=== PATIENT | female | born 1940 | race Caucasian/White ===

== ENCOUNTER → 2020-04-16 | Outpatient (CLI) | payer OTHER ==
[2020-04-16 12:42] LABS: Eosinophils # (auto) 0.3 10 ^3/uL (0-0.8); Eosinophils % (auto) 3.9 % (0.0-7.0); Lymphocytes # (auto) 1.8 10 ^3/uL (0.4-5.4)
[2020-04-16 12:44] LABS: Basophils # (auto) 0.1 10 ^3/uL (0-0.2); Basophils % (auto) 0.9 % (0.0-2.0); Hematocrit 36.2 % (36.0-46.0); Hemoglobin 11.9 g/dL (12.2-16.2); Lymphocytes % (auto) 23.5 % (10.0-50.0); Mean Corpuscular Hemoglobin 24.1 pg (28.0-32.0); Mean Corpuscular Volume 72.9 fL (80.0-100.0); Monocytes # (auto) 0.6 10 ^3/uL (0-1.3); Monocytes % (auto) 7.2 % (0.0-12.0); Neutrophils % (auto) 64.5 % (37.0-80.0); Platelet Count (auto) 298 10^3/uL (140-450); Red Blood Cells 4.96 10^6/uL (4.0-5.20); Red Cell Distribution Width 17.2 % (11.8-14.3); White Blood Cell 7.7 10^3/uL (4.4-10.8)
[2020-04-16 13:07] LABS: Albumin 3.3 g/dL (3.4-5.0); Potassium 3.2 mmol/L (3.5-5.1)
[2020-04-16 13:15] LABS: Urine Bacteria FEW /hpf (None Seen); Urine Blood Negative /uL (Negative); Urine Specific Gravity 1.021 (1.001-1.035); Urine WBC 10 /hpf (0 - 5)
[2020-04-16 13:16] LABS: BUN/Creatinine Ratio 14.3; Bilirubin, Total 0.4 mg/dL (0.2-1.0); Calcium 9.3 mg/dL (8.5-10.1); Total Protein 7.8 g/dL (6.4-8.2)
== END | disposition home or self-care (01) ==
LOC: LAB 12:17
PROVIDERS: ATTEND Student in an Organized Health Care Education/Training Program
DX: I10 Essential (primary) hypertension (principal); E11.9 Type 2 diabetes mellitus without complications
CPT/HCPCS: 36415; 80053; 80061; 81001; 83036; 84443; 85025

== ENCOUNTER → 2020-04-23 | Outpatient (CLI) | payer OTHER ==
[2020-04-23 13:06] LABS: Basophils # (auto) 0.1 10 ^3/uL (0-0.2); Eosinophils # (auto) 0.4 10 ^3/uL (0-0.8); Hematocrit 37.2 % (36.0-46.0); Lymphocytes # (auto) 1.8 10 ^3/uL (0.4-5.4); Monocytes # (auto) 0.4 10 ^3/uL (0-1.3); Red Cell Distribution Width 17.4 % (11.8-14.3); White Blood Cell 7.4 10^3/uL (4.4-10.8)
[2020-04-23 13:07] LABS: Basophils % (auto) 1.2 % (0.0-2.0); Eosinophils % (auto) 5.6 % (0.0-7.0); Hemoglobin 12.1 g/dL (12.2-16.2); Lymphocytes % (auto) 23.8 % (10.0-50.0); Mean Corpuscular Hgb Conc. 32.6 g/dL (32.0-36.0); Mean Corpuscular Volume 73.5 fL (80.0-100.0); Monocytes % (auto) 5.1 % (0.0-12.0); Neutrophils # (auto) 4.8 10 ^3/uL (1.6-8.6); Neutrophils % (auto) 64.3 % (37.0-80.0); Platelet Count (auto) 330 10^3/uL (140-450); Red Blood Cells 5.06 10^6/uL (4.0-5.20)
[2020-04-23 13:40] LABS: Albumin 3.4 g/dL (3.4-5.0); Calcium 10.1 mg/dL (8.5-10.1); Potassium 3.6 mmol/L (3.5-5.1)
[2020-04-23 13:47] LABS: BUN/Creatinine Ratio 11.3; Bilirubin, Total 0.6 mg/dL (0.2-1.0); CRP High Sensitivity 1.25 mg/dL (< 0.3)
== END | disposition home or self-care (01) ==
LOC: LAB 12:38
PROVIDERS: ATTEND Internal Medicine Rheumatology
DX: M05.79 Rheumatoid arthritis with rheumatoid factor of multiple sites without organ or systems involvement (principal); R94.5 Abnormal results of liver function studies; N39.0 Urinary tract infection, site not specified
CPT/HCPCS: 36415; 80053; 85025; 85652; 86141; 86200; 86431; 86705; 87086; 87902

== ENCOUNTER 2020-12-17 16:47 | Emergency (ER) | payer OTHER ==
[~2020-12-17] VITALS: Ht 157.5 cm; Wt 95.3 kg
[2020-12-17 22:04] LABS: White Blood Cell 2.4 10^3/uL (4.4-10.8)
[2020-12-17 22:06] LABS: Hematocrit 27.5 % (36.0-46.0); Mean Corpuscular Hemoglobin 27.5 pg (28.0-32.0); Mean Corpuscular Hgb Conc. 32.8 g/dL (32.0-36.0); Mean Corpuscular Volume 83.9 fL (80.0-100.0); Red Blood Cells 3.28 10^6/uL (4.0-5.20)
[2020-12-17 22:08] LABS: Red Cell Distribution Width 21.5 % (11.8-14.3)
[2020-12-17 22:10] LABS: Band Neutrophils % (manual) 0; Basophils % (manual) 0 (0.0-2.0); Blast Cells 0; Metamyelocytes % 0; Monocytes % (manual) 0 (0-12); Myelocytes % 0; Promyelocytes % 0; Reactive Lymphocytes 0
[2020-12-17 22:23] LABS: Albumin 2.4 g/dL (3.4-5.0); Calcium 9.3 mg/dL (8.5-10.1); Potassium 3.4 mmol/L (3.5-5.1)
[2020-12-17 22:29] LABS: Bilirubin, Total 0.4 mg/dL (0.2-1.0); Total Protein 6.8 g/dL (6.4-8.2)
[2020-12-17 22:45] LABS: Eosinophils % (manual) 2 (0-7); Lymphocytes % (manual) 51 (10.0-50.0)
[2020-12-17] MEDS ORDERED: dilTIAZem 25 MG/5 ML VIAL IV ONE (23:30)
[2020-12-18] MEDS ORDERED: SODIUM CHLORIDE 0.9% 500 ML IV ONE (03:15)
[2020-12-18] MEDS ORDERED: dilTIAZem 25 MG/5 ML VIAL IV ONE (03:15)
[2020-12-18 13:10] VITALS: BP 139/62
== END 2020-12-18 13:29 | disposition short-term general hospital (02) ==
LOC: EDBD 16:47 → ER 16:47
DX: I48.91 Unspecified atrial fibrillation (principal); R42 Dizziness and giddiness; R11.0 Nausea; I10 Essential (primary) hypertension; E11.9 Type 2 diabetes mellitus without complications; Z20.822 Contact with and (suspected) exposure to COVID-19
CPT/HCPCS: 36415; 70450; 71045; 80053; 84484; 85007; 85027; 87426; 93005; 96361; 96374; 96376; 99285; J7040

== ENCOUNTER → 2023-07-04 | Outpatient (CLI) | payer OTHER | END | disposition home or self-care (01) | LOC: XYW 14:19 | PROVIDERS: ATTEND Student in an Organized Health Care Education/Training Program | DX: I51.89 Other ill-defined heart diseases (principal); R07.9 Chest pain, unspecified | CPT/HCPCS: 93306 ==

== ENCOUNTER → 2023-07-07 | Outpatient (CLI) | payer OTHER ==
[~2023-07-07] VITALS: Ht 162.6 cm; Wt 87.1 kg
[2023-07-07] MEDS: ADENOSINE 73 MG in GIVE UN-DILUTED 0 ML IV ONE (11:38)
== END | disposition home or self-care (01) ==
LOC: XYW 09:52
PROVIDERS: ATTEND Student in an Organized Health Care Education/Training Program
DX: R07.9 Chest pain, unspecified (principal); R00.2 Palpitations; I10 Essential (primary) hypertension; R73.03 Prediabetes; M81.0 Age-related osteoporosis without current pathological fracture
CPT/HCPCS: 78452; 93017; A9500; J0153

== ENCOUNTER → 2023-09-05 | Outpatient (CLI) | payer OTHER ==
[2023-09-05 14:47] LABS: Urine Bacteria None Seen /hpf (None Seen)
[2023-09-05 15:07] LABS: Urine Blood Negative /uL (Negative); Urine Clarity Turbid (Clear); Urine Color Yellow (Yellow); Urine Mucus MODERATE (None Seen); Urine Protein, UAD 1+ (Negative); Urine Specific Gravity 1.036 (1.001-1.035); Urine Urobilinogen 2 mg/dL (Negative); Urine WBC 5 /hpf (0 - 5)
[2023-09-05 15:11] LABS: Basophils # (auto) 0.1 10 ^3/uL (0-0.2); Basophils % (auto) 0.7 % (0.0-2.0); Eosinophils # (auto) 0.2 10 ^3/uL (0-0.8); Eosinophils % (auto) 2.9 % (0.0-7.0); Hemoglobin 13.2 g/dL (12.2-16.2); Lymphocytes # (auto) 1.4 10 ^3/uL (0.4-5.4); Mean Corpuscular Hemoglobin 27.8 pg (28.0-32.0); Mean Corpuscular Hgb Conc. 33.1 g/dL (32.0-36.0); Monocytes # (auto) 0.5 10 ^3/uL (0-1.3); Monocytes % (auto) 7.5 % (0.0-12.0); Neutrophils # (auto) 5.1 10 ^3/uL (1.6-8.6); Neutrophils % (auto) 69.9 % (37.0-80.0); Red Blood Cells 4.76 10^6/uL (4.0-5.20); Red Cell Distribution Width 14.8 % (11.8-14.3); White Blood Cell 7.2 10^3/uL (4.4-10.8)
[2023-09-05 15:33] LABS: Alanine Aminotransferase 12 U/L (7-40); Albumin 4.2 g/dL (3.2-4.8); Alkaline Phosphatase 95 U/L (46-116); Anion Gap 7 (5-15); Aspartate Aminotransferase 18 U/L (13-40); BUN/Creatinine Ratio 8.4 (10.0-20.0); Blood Urea Nitrogen 7 mg/dL (9-23); Calcium 10.2 mg/dL (8.7-10.4); Carbon Dioxide 30 mmol/L (20-30); Chloride 105 mmol/L (98-107); Glucose 205 mg/dL (74-106); Magnesium 1.8 mg/dL (1.6-2.6); Potassium 3.8 mmol/L (3.5-5.1); Sodium 142 mmol/L (136-145)
[2023-09-05 15:34] LABS: Bilirubin, Total 0.3 mg/dL (0.2-1.0); Total Protein 6.5 g/dL (5.7-8.2)
[2023-09-05 15:36] LABS: Free T3 2.98 pg/mL (2.3-4.2); T3 Total 1.16 ng/mL (0.60-1.81)
[2023-09-05 15:50] LABS: Uric Acid 5.2 mg/dL (3.1-7.8)
[2023-09-06 16:07] LABS: Creatinine, Urine 371.67 mg/dL (30.0-125.0)
== END | disposition home or self-care (01) ==
LOC: LAB 14:30
PROVIDERS: ATTEND Family Medicine
DX: I10 Essential (primary) hypertension (principal); E78.2 Mixed hyperlipidemia; K21.9 Gastro-esophageal reflux disease without esophagitis; Z76.89 Persons encountering health services in other specified circumstances
CPT/HCPCS: 36415; 80053; 81001; 82043; 82306; 82570; 82607; 83036; 83735; 84439; 84443; 84480; 84481; 84550; 85025; 87086; 87088; 87186

== ENCOUNTER 2023-10-04 14:41 | Emergency (ER) | payer OTHER ==
[~2023-10-04] VITALS: Ht 165.1 cm; Wt 81.8 kg
[2023-10-04] MEDS: KETOROLAC TROMETH 30 MG/ML 1ML VIAL IM ONE (17:59)
[2023-10-04] MEDS ORDERED: HYDR-4902 PO (18:28)
[2023-10-04 18:30] VITALS: BP 140/68; PULSE 89; RESP 17; TEMP 97.8; O2SAT 96
== END 2023-10-04 18:33 | disposition home or self-care (01) ==
LOC: EDBD 14:41 → ER 14:41 → EDUNIT# 14:41 → ER 18:32
DX: M54.59 Other low back pain (principal); E11.9 Type 2 diabetes mellitus without complications; I10 Essential (primary) hypertension
CPT/HCPCS: 72100; 96372; 99283; J1885

== ENCOUNTER 2023-10-11 11:36 | Inpatient (IN) | payer OTHER ==
[~2023-10-11] VITALS: Ht 162.6 cm; Wt 80.7 kg
[~2023-10-11 11:36] MED LIST: HYDR-4902 PO
[2023-10-11] MEDS: dilTIAZem 25 MG/5 ML VIAL IV ONE (12:56)
[2023-10-11 12:58] VITALS: PULSE 118; RESP 27; O2SAT 91
[2023-10-11 13:35] LABS: Basophils # (auto) 0.1 10 ^3/uL (0-0.2); Basophils % (auto) 0.7 % (0.0-2.0); Eosinophils # (auto) 0.1 10 ^3/uL (0-0.8); Eosinophils % (auto) 1.6 % (0.0-7.0); Hematocrit 42.8 % (36.0-46.0); Hemoglobin 14.3 g/dL (12.2-16.2); Lymphocytes # (auto) 1.6 10 ^3/uL (0.4-5.4); Lymphocytes % (auto) 20.9 % (10.0-50.0); Mean Corpuscular Hemoglobin 28.1 pg (28.0-32.0); Mean Corpuscular Hgb Conc. 33.3 g/dL (32.0-36.0); Mean Corpuscular Volume 84.3 fL (80.0-100.0); Monocytes # (auto) 0.4 10 ^3/uL (0-1.3); Monocytes % (auto) 5.3 % (0.0-12.0); Neutrophils # (auto) 5.6 10 ^3/uL (1.6-8.6); Neutrophils % (auto) 71.5 % (37.0-80.0); Platelet Count (auto) 251 10^3/uL (140-450); Red Blood Cells 5.08 10^6/uL (4.0-5.20); Red Cell Distribution Width 17.1 % (11.8-14.3); White Blood Cell 7.8 10^3/uL (4.4-10.8)
[2023-10-11 13:41] LABS: Chloride 110 mmol/L (98-107); Potassium 3.4 mmol/L (3.5-5.1); Sodium 142 mmol/L (136-145)
[2023-10-11 13:42] LABS: Anion Gap 8 (5-15); Carbon Dioxide 24 mmol/L (20-30)
[2023-10-11 13:43] LABS: Calcium 9.9 mg/dL (8.7-10.4)
[2023-10-11 13:47] LABS: Glucose 156 mg/dL (74-106)
[2023-10-11 13:48] LABS: BUN/Creatinine Ratio 24.3 (10.0-20.0); Blood Urea Nitrogen 18 mg/dL (9-23); Magnesium 1.8 mg/dL (1.6-2.6)
[2023-10-11] MEDS: HYDROcodone-ACET 5/325MG TAB PO ONE (14:16)
[2023-10-11 14:36] LABS: Urine Bacteria FEW /hpf (None Seen); Urine Blood Negative /uL (Negative); Urine Clarity Clear (Clear); Urine Color Yellow (Yellow); Urine Mucus FEW (None Seen); Urine Protein, UAD 1+ (Negative); Urine Urobilinogen 3 mg/dL (Negative); Urine WBC 8 /hpf (0 - 5)
[2023-10-11 14:40] LABS: Urine Specific Gravity > 1.035 (1.001-1.035)
[2023-10-11] MEDS ORDERED: ONDANSETRON HCL 4 MG/2 ML VIAL IV PRN (16:15)
[2023-10-11] MEDS ORDERED: DEXTROSE (50%) 50ML SYRG IV PRN (16:15)
[2023-10-11] MEDS ORDERED: HYDROcodone-ACET 5/325MG TAB PO PRN (16:15)
[2023-10-11] MEDS: POTASSIUM CHL 20 Meq TABLET PO ONE (16:49)
[2023-10-11] MEDS: ACCU-CHEK COMFORT CURVE STRIP VI SCH (17:24)
[2023-10-11] MEDS: InsuLIN REG 1unit/0.01ml Soln (100units/ml) SC SCH (17:27)
[2023-10-11] MEDS ORDERED: NITROGLYCERIN 0.4 MG SL TAB SL PRN (19:15)
[2023-10-11] MEDS ORDERED: MORPHINE SULFATE INJ 2 MG/ml SYRG IV PRN (19:15)
[2023-10-11] MEDS: CARVEDILOL 3.125 MG TAB PO SCH (21:18)
[2023-10-11] MEDS: DONEPEZIL HYDROCHLORIDE 5 MG TAB PO SCH (22:11)
[2023-10-11] MEDS: ATORVASTATIN 20 MG TAB PO SCH (22:11)
[2023-10-11] MEDS: FAMOTIDINE (10MG/ML) 2ML VL IV SCH (22:25)
[2023-10-11] MEDS: SODIUM CHLOR 0.9% PF (SALINE LOCK) 10ML VIAL/SYR IV SCH (22:26)
[2023-10-12] MEDS: DIGOXIN (250MCG/ML) 2 ML AMPULE IV ONE (00:31)
[2023-10-12 01:00] VITALS: BP 110/65; PULSE 108; RESP 16; TEMP 97.6; O2SAT 96
[2023-10-12 04:56] LABS: Basophils # (auto) 0.1 10 ^3/uL (0-0.2); Basophils % (auto) 0.6 % (0.0-2.0); Eosinophils # (auto) 0.2 10 ^3/uL (0-0.8); Eosinophils % (auto) 2.9 % (0.0-7.0); Hematocrit 42.3 % (36.0-46.0); Hemoglobin 14.2 g/dL (12.2-16.2); Lymphocytes # (auto) 1.9 10 ^3/uL (0.4-5.4); Lymphocytes % (auto) 22.1 % (10.0-50.0); Mean Corpuscular Hemoglobin 28.1 pg (28.0-32.0); Mean Corpuscular Hgb Conc. 33.6 g/dL (32.0-36.0); Mean Corpuscular Volume 83.9 fL (80.0-100.0); Monocytes # (auto) 0.6 10 ^3/uL (0-1.3); Monocytes % (auto) 6.7 % (0.0-12.0); Neutrophils # (auto) 5.8 10 ^3/uL (1.6-8.6); Neutrophils % (auto) 67.7 % (37.0-80.0); Platelet Count (auto) 272 10^3/uL (140-450); Red Blood Cells 5.05 10^6/uL (4.0-5.20); Red Cell Distribution Width 16.9 % (11.8-14.3); White Blood Cell 8.5 10^3/uL (4.4-10.8)
[2023-10-12 05:11] LABS: Alanine Aminotransferase 23 U/L (7-40); Albumin 3.8 g/dL (3.2-4.8); Alkaline Phosphatase 104 U/L (46-116); Anion Gap 9 (5-15); Aspartate Aminotransferase 29 U/L (13-40); BUN/Creatinine Ratio 19.4 (10.0-20.0); Bilirubin, Total 0.4 mg/dL (0.2-1.0); Blood Urea Nitrogen 13 mg/dL (9-23); Calcium 9.7 mg/dL (8.7-10.4); Carbon Dioxide 23 mmol/L (20-30); Chloride 108 mmol/L (98-107); Glucose 152 mg/dL (74-106); Potassium 3.6 mmol/L (3.5-5.1); Sodium 140 mmol/L (136-145); Total Protein 6.4 g/dL (5.7-8.2)
[2023-10-12 07:25] VITALS: PULSE 127; RESP 21; O2SAT 92
[2023-10-12] MEDS: ASPirin 81 mg TAB PO SCH (10:11)
[2023-10-12] MEDS ORDERED: OMEP-448 (11:51)
[2023-10-12] MEDS ORDERED: POTA-211 (11:51)
[2023-10-12] MEDS ORDERED: ATOR10TA52 PO (11:51)
[2023-10-12] MEDS ORDERED: FURO40TA4 PO (11:51)
[2023-10-12] MEDS ORDERED: AMLO1TAB22 PO (11:51)
[2023-10-12] MEDS ORDERED: HYDR-4902 (11:54)
[2023-10-12] MEDS ORDERED: CYCL-837 PO (11:54)
[2023-10-12] MEDS: PANTOPRAZOLE 40 MG TAB PO ONE (13:57)
[2023-10-12] MEDS: DOCUSATE SOD 100 MG CAP PO PRN (15:19)
[2023-10-12] MEDS: KETOROLAC TROMETH 30 MG/ML 1ML VIAL IV PRN (15:35)
[2023-10-12 19:35] VITALS: PULSE 115; RESP 20; O2SAT 95
[2023-10-12] MEDS: hydrALAZINE HCL 20 MG/ML VL IV PRN (21:14)
[2023-10-12 21:54] VITALS: PULSE 108; RESP 17; O2SAT 94
[2023-10-12] MEDS: METOPROLOL TARTRATE 50 MG TAB PO SCH (23:38)
[2023-10-12] MEDS: ENOXAPARIN SOD 100 MG/1 ML SYRINGE SC SCH (23:39)
[2023-10-13] VITALS (8 sets, daily range): BP systolic 102–131; BP diastolic 57–83; PULSE 68–128; RESP 16–18; TEMP 97.6–98.6; O2SAT 94–98
[2023-10-13] MEDS: PANTOPRAZOLE 40 MG TAB PO SCH (05:19)
[2023-10-13] MEDS: HYDROcodone-ACET 5/325MG TAB PO PRN (05:33)
[2023-10-13] MEDS: cefTRIAXone 1GM/50ML D5W 50 ML IV SCH (08:51)
[2023-10-13] MEDS: FUROSEMIDE 40 MG TAB PO SCH (10:00)
[2023-10-13] MEDS: METOPROLOL SUCCINATE XL 50 MG TAB PO SCH (10:00)
[2023-10-13 10:20] LABS: Basophils # (auto) 0.1 10 ^3/uL (0-0.2); Basophils % (auto) 0.8 % (0.0-2.0); Eosinophils # (auto) 0.4 10 ^3/uL (0-0.8); Eosinophils % (auto) 4.7 % (0.0-7.0); Hematocrit 40.5 % (36.0-46.0); Hemoglobin 13.5 g/dL (12.2-16.2); Lymphocytes # (auto) 1.9 10 ^3/uL (0.4-5.4); Lymphocytes % (auto) 20.4 % (10.0-50.0); Mean Corpuscular Hemoglobin 28.1 pg (28.0-32.0); Mean Corpuscular Hgb Conc. 33.3 g/dL (32.0-36.0); Mean Corpuscular Volume 84.3 fL (80.0-100.0); Monocytes # (auto) 0.5 10 ^3/uL (0-1.3); Monocytes % (auto) 5.6 % (0.0-12.0); Neutrophils # (auto) 6.2 10 ^3/uL (1.6-8.6); Neutrophils % (auto) 68.5 % (37.0-80.0); Platelet Count (auto) 282 10^3/uL (140-450); Red Blood Cells 4.81 10^6/uL (4.0-5.20); Red Cell Distribution Width 17.1 % (11.8-14.3); White Blood Cell 9.1 10^3/uL (4.4-10.8)
[2023-10-13 10:28] LABS: Anion Gap 6 (5-15); Carbon Dioxide 25 mmol/L (20-30); Chloride 108 mmol/L (98-107); Potassium 3.7 mmol/L (3.5-5.1); Sodium 139 mmol/L (136-145)
[2023-10-13 10:29] LABS: Calcium 9.4 mg/dL (8.7-10.4)
[2023-10-13 10:33] LABS: Glucose 194 mg/dL (74-106)
[2023-10-13 10:34] LABS: BUN/Creatinine Ratio 23.9 (10.0-20.0); Blood Urea Nitrogen 17 mg/dL (9-23); Magnesium 1.7 mg/dL (1.6-2.6)
[2023-10-13] MEDS: CYANOCOBALAMIN (B-12) 1000 MCG/1 ML VIAL IM ONE (14:30)
[2023-10-13] MEDS: APIXABAN 2.5 MG TAB PO SCH (21:42)
[2023-10-13] MEDS: METOPROLOL TARTRATE 25 MG TAB PO ONE (21:43)
[2023-10-14 05:00] VITALS: BP 108/54; PULSE 104; RESP 18; TEMP 97.7; O2SAT 96
[2023-10-14 08:46] VITALS: BP 119/56; PULSE 83; RESP 20; TEMP 98.3; O2SAT 95
[2023-10-14] MEDS: ACETAMINOPHEN 325 MG TAB PO PRN (09:25)
[2023-10-14 09:53] LABS: Anion Gap 5 (5-15); Calcium 9.2 mg/dL (8.7-10.4); Carbon Dioxide 27 mmol/L (20-30); Chloride 109 mmol/L (98-107); Potassium 3.8 mmol/L (3.5-5.1); Sodium 141 mmol/L (136-145)
[2023-10-14 09:59] LABS: BUN/Creatinine Ratio 23.3 (10.0-20.0); Blood Urea Nitrogen 14 mg/dL (9-23); Glucose 135 mg/dL (74-106)
[2023-10-14] MEDS ORDERED: PANT40T PO (11:08)
[2023-10-14] MEDS ORDERED: APIX2.5T PO (11:08)
[2023-10-14] MEDS ORDERED: METO-6 PO (11:08)
[2023-10-14] MEDS ORDERED: DONE5TAB80 PO (11:08)
[2023-10-14 12:12] VITALS: BP 107/79; PULSE 66; RESP 20; TEMP 98.4; O2SAT 95
== END 2023-10-14 13:30 | disposition home or self-care (01) | DRG 552 ==
LOC: ER 11:36 → TELE 19:09 → TELE-CENTR 10-12 21:30
PROVIDERS: ADMIT Internal Medicine; ATTEND Emergency Medicine
DX: S32.030A Wedge compression fracture of third lumbar vertebra, initial encounter for closed fracture (principal); N39.0 Urinary tract infection, site not specified; I48.19 Other persistent atrial fibrillation; E11.65 Type 2 diabetes mellitus with hyperglycemia; I10 Essential (primary) hypertension; M51.36 Other intervertebral disc degeneration, lumbar region; M47.816 Spondylosis without myelopathy or radiculopathy, lumbar region; M48.07 Spinal stenosis, lumbosacral region; K21.9 Gastro-esophageal reflux disease without esophagitis; Z88.8 Allergy status to other drugs, medicaments and biological substances; Z91.041 Radiographic dye allergy status; Z79.899 Other long term (current) drug therapy; Z90.710 Acquired absence of both cervix and uterus; Z90.49 Acquired absence of other specified parts of digestive tract
CPT/HCPCS: 36415; 71045; 72131; 72148; 80048; 80053; 81001; 82306; 82607; 82962; 83036; 83735; 83880; 84484; 85025; 93005; 97163; G0378; J1815; J1885; J3490

== ENCOUNTER 2023-11-08 23:57 | Emergency (ER) | payer OTHER ==
[~2023-11-08] VITALS: Ht 165.1 cm; Wt 87.3 kg
[~2023-11-08 23:57] MED LIST changes: +APIX2.5T PO; +ATOR10TA52 PO; +DONE5TAB80 PO; +FURO40TA4 PO; +METO-6 PO; +PANT40T PO; +POTA-211
[2023-11-09] MEDS ORDERED: HYDROmorphone HCL 2 MG/ML VL/or syr IM ONE (05:30)
[2023-11-09] MEDS ORDERED: DOCU-94 PO (05:32)
[2023-11-09 05:55] VITALS: TEMP 98; O2SAT 95
[2023-11-09] MEDS ORDERED: MORPHINE SULFATE 4 MG/ML SYR/VIAL IV ONE (06:00)
[2023-11-09] MEDS: ONDANSETRON HCL 4 MG/2 ML VIAL IM ONE (06:24)
[2023-11-09] MEDS: MORPHINE SULFATE INJ 2 MG/ml SYRG IM ONE (06:32)
[2023-11-09 07:00] VITALS: BP 117/64; PULSE 73; RESP 14
== END 2023-11-09 07:01 | disposition home or self-care (01) ==
LOC: ER 23:57
DX: S32.018A Other fracture of first lumbar vertebra, initial encounter for closed fracture (principal); K59.00 Constipation, unspecified; I10 Essential (primary) hypertension; E78.5 Hyperlipidemia, unspecified; K21.9 Gastro-esophageal reflux disease without esophagitis; E11.9 Type 2 diabetes mellitus without complications; I48.91 Unspecified atrial fibrillation; Z86.73 Personal history of transient ischemic attack (TIA), and cerebral infarction without residual deficits; Z98.890 Other specified postprocedural states; Z91.041 Radiographic dye allergy status; Z79.899 Other long term (current) drug therapy; X58.XXXA Exposure to other specified factors, initial encounter; Y93.89 Activity, other specified; Y92.89 Other specified places as the place of occurrence of the external cause; Y99.8 Other external cause status
CPT/HCPCS: 96372; 99284; J2270; J2405

== ENCOUNTER → 2024-02-23 | Outpatient (CLI) | payer OTHER ==
[~2024-02-23] MED LIST changes: +DOCU-94 PO
[2024-02-23 12:17] LABS: Urine Bacteria None Seen /hpf (None Seen)
[2024-02-23 12:33] LABS: Basophils # (auto) 0 10 ^3/uL (0-0.2); Basophils % (auto) 0.7 % (0.0-2.0); Eosinophils # (auto) 0.1 10 ^3/uL (0-0.8); Eosinophils % (auto) 1.1 % (0.0-7.0); Hematocrit 39.1 % (36.0-46.0); Hemoglobin 12.9 g/dL (12.2-16.2); Lymphocytes # (auto) 1.2 10 ^3/uL (0.4-5.4); Lymphocytes % (auto) 19.9 % (10.0-50.0); Mean Corpuscular Hemoglobin 28.9 pg (28.0-32.0); Mean Corpuscular Hgb Conc. 33.1 g/dL (32.0-36.0); Mean Corpuscular Volume 87.4 fL (80.0-100.0); Monocytes # (auto) 0.4 10 ^3/uL (0-1.3); Monocytes % (auto) 6.4 % (0.0-12.0); Neutrophils # (auto) 4.3 10 ^3/uL (1.6-8.6); Neutrophils % (auto) 71.9 % (37.0-80.0); Nucleated Red Blood Cells % 0.1 %; Platelet Count (auto) 208 10^3/uL (140-450); Red Blood Cells 4.47 10^6/uL (4.0-5.20); Red Cell Distribution Width 14.2 % (11.8-14.3); White Blood Cell 5.9 10^3/uL (4.4-10.8)
[2024-02-23 12:57] LABS: Urine Blood Negative /uL (Negative); Urine Clarity Clear (Clear); Urine Color Yellow (Yellow); Urine Mucus FEW (None Seen); Urine Protein, UAD TRACE (Negative); Urine Specific Gravity 1.028 (1.001-1.035); Urine Squamous Epithelial Cell FEW /hpf (<5); Urine Urobilinogen 2 mg/dL (Negative); Urine WBC 2 /hpf (0 - 5)
[2024-02-23 13:02] LABS: Alanine Aminotransferase 19 U/L (7-40); Albumin 4.2 g/dL (3.2-4.8); Alkaline Phosphatase 102 U/L (46-116); Anion Gap 6 (5-15); Aspartate Aminotransferase 23 U/L (13-40); BUN/Creatinine Ratio 9.9 (10.0-20.0); Blood Urea Nitrogen 9 mg/dL (9-23); Calcium 9.9 mg/dL (8.7-10.4); Carbon Dioxide 30 mmol/L (20-31); LDL Cholesterol 67 mg/dL (< 100); Potassium 4.2 mmol/L (3.5-5.1); Sodium 143 mmol/L (136-145); Triglycerides 119 mg/dL (< 150)
[2024-02-23 13:03] LABS: Bilirubin, Total 0.5 mg/dL (0.2-1.0); Cholesterol 158 mg/dL (< 200); Total Protein 6.7 g/dL (5.7-8.2)
[2024-02-23 13:08] LABS: Chloride 107 mmol/L (98-107); Glucose 179 mg/dL (74-106); HDL Cholesterol 77 mg/dL (40-59)
[2024-02-23 13:19] LABS: Uric Acid 4.3 mg/dL (3.1-7.8)
[2024-02-23 13:26] LABS: Folate (Folic Acid) 38.32 ng/mL (>5.38)
== END | disposition home or self-care (01) ==
LOC: LAB 12:00
PROVIDERS: ATTEND Internal Medicine
DX: E11.9 Type 2 diabetes mellitus without complications (principal); E79.0 Hyperuricemia without signs of inflammatory arthritis and tophaceous disease; E55.9 Vitamin D deficiency, unspecified; E78.9 Disorder of lipoprotein metabolism, unspecified; E78.00 Pure hypercholesterolemia, unspecified; E61.2 Magnesium deficiency; R68.89 Other general symptoms and signs; R82.90 Unspecified abnormal findings in urine; E78.49 Other hyperlipidemia
CPT/HCPCS: 36415; 80053; 80061; 81001; 82306; 82607; 82746; 83036; 84443; 84550; 85025; 87086

== ENCOUNTER → 2024-07-20 | Outpatient (CLI) | payer OTHER ==
[2024-07-20 11:48] LABS: Urine Bacteria None Seen /hpf (None Seen)
[2024-07-20 11:54] LABS: Basophils # (auto) 0.1 10 ^3/uL (0-0.2); Basophils % (auto) 1.2 % (0.0-2.0); Eosinophils # (auto) 0.2 10 ^3/uL (0-0.8); Eosinophils % (auto) 3.3 % (0.0-7.0); Hematocrit 40.5 % (36.0-46.0); Hemoglobin 13.5 g/dL (12.2-16.2); Lymphocytes # (auto) 1.4 10 ^3/uL (0.4-5.4); Lymphocytes % (auto) 26.9 % (10.0-50.0); Mean Corpuscular Hemoglobin 28.3 pg (28.0-32.0); Mean Corpuscular Hgb Conc. 33.2 g/dL (32.0-36.0); Mean Corpuscular Volume 85.1 fL (80.0-100.0); Monocytes # (auto) 0.3 10 ^3/uL (0-1.3); Monocytes % (auto) 5.8 % (0.0-12.0); Neutrophils # (auto) 3.4 10 ^3/uL (1.6-8.6); Neutrophils % (auto) 62.8 % (37.0-80.0); Platelet Count (auto) 222 10^3/uL (140-450); Red Blood Cells 4.76 10^6/uL (4.0-5.20); Red Cell Distribution Width 14.4 % (11.8-14.3); White Blood Cell 5.4 10^3/uL (4.4-10.8)
[2024-07-20 12:27] LABS: Urine Blood Negative /uL (Negative); Urine Clarity Clear (Clear); Urine Color Yellow (Yellow); Urine Mucus MODERATE (None Seen); Urine Protein, UAD TRACE (Negative); Urine Specific Gravity 1.032 (1.001-1.035); Urine Squamous Epithelial Cell FEW /hpf (<5); Urine Urobilinogen 2 mg/dL (Negative); Urine WBC 5 /HPF (0-5)
[2024-07-20 13:15] LABS: Alanine Aminotransferase 11 U/L (7-40); Albumin 4.1 g/dL (3.2-4.8); Alkaline Phosphatase 95 U/L (46-116); Anion Gap 5 (5-15); Aspartate Aminotransferase 17 U/L (13-40); BUN/Creatinine Ratio 8.9 (10.0-20.0); LDL Cholesterol 80 mg/dL (< 100); Sodium 145 mmol/L (136-145); Total Protein 6.4 g/dL (5.7-8.2); Triglycerides 141 mg/dL (< 150)
[2024-07-20 13:16] LABS: Bilirubin, Total 0.4 mg/dL (0.2-1.0); Cholesterol 161 mg/dL (< 200); HDL Cholesterol 57 mg/dL (40-59)
[2024-07-20 13:18] LABS: Blood Urea Nitrogen 7 mg/dL (9-23); Carbon Dioxide 32 mmol/L (20-31); Chloride 108 mmol/L (98-107); Glucose 173 mg/dL (74-106)
[2024-07-20 13:21] LABS: Creatinine, Urine 293.23 mg/dL (30.0-125.0)
== END | disposition home or self-care (01) ==
LOC: LAB 11:30
PROVIDERS: ATTEND Internal Medicine
DX: I12.9 Hypertensive chronic kidney disease with stage 1 through stage 4 chronic kidney disease, or unspecified chronic kidney disease (principal); E11.22 Type 2 diabetes mellitus with diabetic chronic kidney disease; N18.2 Chronic kidney disease, stage 2 (mild); E11.69 Type 2 diabetes mellitus with other specified complication; E78.5 Hyperlipidemia, unspecified; E55.9 Vitamin D deficiency, unspecified; R07.89 Other chest pain; Z00.01 Encounter for general adult medical examination with abnormal findings
CPT/HCPCS: 36415; 80053; 80061; 81001; 82043; 82306; 82570; 83036; 84439; 84443; 85025

== ENCOUNTER → 2024-11-15 | Outpatient (CLI) | payer OTHER ==
[2024-11-15 14:22] LABS: Hematocrit 39.9 % (36.0-46.0); Hemoglobin 13.4 g/dL (12.2-16.2); Mean Corpuscular Hemoglobin 28.3 pg (28.0-32.0); Mean Corpuscular Volume 84.6 fL (80.0-100.0); Nucleated Red Blood Cells % 0.0 %
[2024-11-15 14:33] LABS: Anion Gap 11 (5-15); Carbon Dioxide 29 mmol/L (20-31); Chloride 104 mmol/L (98-107); Potassium 3.9 mmol/L (3.5-5.1); Sodium 144 mmol/L (136-145)
[2024-11-15 14:34] LABS: Calcium 9.0 mg/dL (8.7-10.4)
[2024-11-15 14:39] LABS: BUN/Creatinine Ratio 10.8 (10.0-20.0); Blood Urea Nitrogen 8 mg/dL (9-23); Glucose 124 mg/dL (74-106)
== END | disposition home or self-care (01) ==
LOC: LAB 14:02
PROVIDERS: ATTEND Internal Medicine
DX: R06.02 Shortness of breath (principal)
CPT/HCPCS: 36415; 80048; 83880; 85025

== ENCOUNTER → 2025-01-31 | Outpatient (CLI) | payer OTHER ==
[2025-01-31 13:07] LABS: Hematocrit 40.4 % (36.0-46.0); Hemoglobin 13.3 g/dL (12.2-16.2); Mean Corpuscular Hemoglobin 28.2 pg (28.0-32.0); Mean Corpuscular Volume 85.8 fL (80.0-100.0); Nucleated Red Blood Cells % 0.1 %
[2025-01-31 15:54] LABS: Urine Protein, UAD TRACE (Negative)
[2025-01-31 16:46] LABS: Microalb/Creat Ratio, Urine 4.0
[2025-01-31 17:04] LABS: Albumin 4.1 g/dL (3.2-4.8); Alkaline Phosphatase 87 U/L (46-116); Anion Gap 11 (5-15); BUN/Creatinine Ratio 8.9 (10.0-20.0); Calcium 9.4 mg/dL (8.7-10.4); Chloride 102 mmol/L (98-107); Potassium 3.9 mmol/L (3.5-5.1); Sodium 144 mmol/L (136-145); Total Protein 6.6 g/dL (5.7-8.2); Triglycerides 137 mg/dL (< 150)
[2025-01-31 17:05] LABS: Alanine Aminotransferase 9 U/L (7-40); Bilirubin, Total 0.4 mg/dL (0.2-1.0); Blood Urea Nitrogen 7 mg/dL (9-23); Carbon Dioxide 31 mmol/L (20-31); Cholesterol 168 mg/dL (< 200); Glucose 136 mg/dL (74-106); HDL Cholesterol 66 mg/dL (40-59)
== END | disposition home or self-care (01) ==
LOC: LAB 12:41
PROVIDERS: ATTEND Nurse Practitioner Family
DX: I10 Essential (primary) hypertension (principal); E78.5 Hyperlipidemia, unspecified; E55.9 Vitamin D deficiency, unspecified; N39.0 Urinary tract infection, site not specified; Z79.899 Other long term (current) drug therapy
CPT/HCPCS: 36415; 80053; 80061; 81001; 82043; 82570; 83036; 84443; 85025; 87086